=== PATIENT | female | born 1985 | race African-American/Black ===

== ENCOUNTER 2019-04-18 19:41 | Emergency (ER) | payer OTHER ==
[2019-04-18] MEDS ORDERED: Acetaminophen 500 MG TAB ONE (20:11)
[2019-04-18] MEDS ORDERED: Ondansetron PF 4 MG/2 ML Vial ONE (20:12)
[2019-04-18] MEDS ORDERED: Ketorolac Tromethamine 30 MG/ML VIAL ONE (20:12)
[2019-04-18 20:25] LABS: #Lymphocytes 2.1 thou/uL (1.20-3.40); #Monocytes 1.4 thou/uL (0.11-0.59); %Basophils 0.3 % (0.0-1.0); %Eosinophils 0.1 % (0.0-10.0); %Lymphocytes 15.3 % (21.0-51.0); %Monocytes 10.1 % (0.0-10.0); %Neutrophils 74.2 % (42.0-75.0); Mean Corpuscular HGB CONC 33.2 g/dL (32.0-36.0); Mean Corpuscular Hemoglobin 32.8 pg (27.0-31.0); Mean Corpuscular Volume 98.9 fL (78.0-98.0); Mean Platelet Volume 7.2 fL (7.4-10.4); Platelet Count 265 thou/uL (130-400); RBC Distribution Width 12.3 % (11.5-14.5); Red Blood Cell (RBC) Count 3.95 mill/uL (4.20-5.40); White Blood Cell (WBC) Count 13.5 thou/uL (4.8-10.8)
[2019-04-18 20:47] LABS: ALT (SGPT) 17 U/L (8-55); AST (SGOT) 18 U/L (5-34); Albumin 3.8 g/dL (3.5-5.0); Alkaline Phosphatase 55 U/L (40-150); Anion Gap 11 mmol/L (10-20); BUN (Urea Nitrogen) 7 mg/dL (7.0-18.7); Bilirubin, Total 0.6 mg/dL (0.2-1.2); Calc. Creatinine Clearance 0 mL/min (70-130); Carbon Dioxide 23 mmol/L (22-29); Chloride 104 mmol/L (98-107); Estimated GFR-MDRD Greater than 90; Glucose 105 mg/dL (70-105); Potassium 3.1 mmol/L (3.5-5.1); Protein, Total 7.8 g/dL (6.0-8.3); Sodium 135 mmol/L (136-145)
[2019-04-18] MEDS ORDERED: Bicillin LA 2.4 MILL.UNITS/4 ML SYRINGE ONE (20:48)
[2019-04-18] MEDS ORDERED: Potassium Chloride 20 MEQ TAB ONE (21:39)
== END 2019-04-18 22:28 | disposition home or self-care (01) ==
LOC: ERS 19:41
DX: J02.0 Streptococcal pharyngitis (principal); E87.6 Hypokalemia
CPT/HCPCS: 80053; 85025; 87430; 87804; 96361; 96372; 96374; 96375; J0561; J1885; J2405

== ENCOUNTER 2020-08-15 19:30 | Emergency (ER) | payer OTHER, SELFPAY ==
[2020-08-16 05:43] LABS: SARS-CoV-2 MS2 Positive; SARS-CoV-2 N Gene Negative; SARS-CoV-2 S Gene Negative; SARS-CoV-2 by NAA Not Detected (NotDetected); SARS-CoV-2 orf1ab Negative
== END 2020-08-15 20:40 | disposition home or self-care (01) ==
LOC: ERS 19:30
DX: Z20.828 Contact with and (suspected) exposure to other viral communicable diseases (principal)
CPT/HCPCS: 87635; 99283; U0003

== ENCOUNTER 2020-10-11 18:51 | Emergency (ER) | payer SELFPAY ==
[2020-10-12 01:34] LABS: SARS-CoV-2 MS2 Positive; SARS-CoV-2 N Gene Positive; SARS-CoV-2 S Gene Positive; SARS-CoV-2 by NAA DETECTED (NotDetected); SARS-CoV-2 orf1ab Positive
== END 2020-10-11 19:53 | disposition home or self-care (01) ==
LOC: ERS 18:51
DX: U07.1 COVID-19 (principal)
CPT/HCPCS: 87635; 99283; U0003; U0005

== ENCOUNTER 2024-09-02 10:28 | Day surgery (SDC) | payer OTHER ==
[2024-09-02] MEDS ORDERED: fentaNYL 50 mcg/mL 1 mL Vial ONE ×5 (11:43→14:52)
[2024-09-02] MEDS ORDERED: EPINEPHrine 1 MG/ML VIAL ONE (11:43)
[2024-09-02] MEDS ORDERED: Midazolam HCl 2 mg/2 ml Vial ONE (11:44)
[2024-09-02] MEDS ORDERED: Ropivacaine 0.2% HCl/PF 20 ML ONE (11:44)
[2024-09-02] MEDS ORDERED: Ropivacaine 0.5% HCl/PF (150 MG/30 ML VIAL) ONE (11:44)
[2024-09-02] MEDS ORDERED: Bupivacaine PF 0.5% 30 ML VIAL ONE (11:44)
[2024-09-02] MEDS ORDERED: Dexmedetomidine 200 MCG/2 ML VIAL ONE (12:20)
[2024-09-02] MEDS ORDERED: PROPOFOL 40 ML ONE (12:20)
[2024-09-02] MEDS ORDERED: Esmolol 100 MG/10 ML VIAL ONE (12:20)
[2024-09-02] MEDS ORDERED: fentaNYL PF 100 MCG/2 ML SYRINGE ONE (12:20)
[2024-09-02] MEDS ORDERED: Dexamethasone 4 mg/ml Vial ONE (12:24)
[2024-09-02] MEDS ORDERED: Ondansetron PF 4 MG/2 ML Vial ONE (12:24)
[2024-09-02] MEDS ORDERED: Promethazine HCl 25 MG/ML VIAL IM PRN (12:30)
[2024-09-02] MEDS ORDERED: Ropivacaine 0.2% 550 ML 550 ML NERVE BLCK SCH (12:30)
[2024-09-02] MEDS ORDERED: Ondansetron PF 4 MG/2 ML Vial IVP PRN (12:30)
[2024-09-02] MEDS ORDERED: Zolpidem Tartrate 5 MG TAB PO PRN (12:30)
[2024-09-02] MEDS ORDERED: traMADol HCl 50 MG TAB PO PRN ×2 (12:30)
[2024-09-02] MEDS ORDERED: HYDROcodone/Acetaminophen 10/325 mg Tablet PO PRN ×2 (12:30)
[2024-09-02] MEDS ORDERED: CEFAZOLIN 2 GM VIAL ONE (12:35)
[2024-09-02] MEDS ORDERED: Ketorolac Tromethamine 30 MG (1 mL) VIAL ONE (13:26)
[2024-09-02] MEDS ORDERED: HYDROmorphone 0.5 MG/0.5 ML SYRINGE ONE ×2 (14:53→15:18)
[2024-09-02] MEDS ORDERED: HYDROcodone/Acetaminophen 5/325 mg Tablet ONE (15:42)
[2024-09-02] MEDS ORDERED: Ketorolac Tromethamine 30 MG (1 mL) VIAL IVP SCH (18:00)
== END 2024-09-02 16:23 | disposition home or self-care (01) ==
LOC: SDC 10:28
PROVIDERS: ATTEND Orthopaedic Surgery
PROC: 0QSK04Z Reposition Left Fibula with Internal Fixation Device, Open Approach (ICD-10-PCS; principal; 2024-09-02)
PROC: 0QSH0ZZ Reposition Left Tibia, Open Approach (ICD-10-PCS; principal; 2024-09-02)
PROC: 0QSH04Z Reposition Left Tibia with Internal Fixation Device, Open Approach (ICD-10-PCS; principal; 2024-09-02)
DX: S82.851A Displaced trimalleolar fracture of right lower leg, initial encounter for closed fracture (principal); X58.XXXA Exposure to other specified factors, initial encounter
CPT/HCPCS: A4306; C1713; J0171; J0665; J1100; J1885; J2250; J2405; J2704; J2795; J3010